=== PATIENT | male | born 1975 | race Caucasian/White ===

== ENCOUNTER 2017-06-15 13:56 | Inpatient (IN) ==
[2017-06-15] MEDS: M.V.I.-12 10 ML, FOLIC ACID 1 MG, MAGNESIUM SULFATE 1 GM, THIAMINE 100 MG in NS 1,000 ML IV ONE ×2 (14:23→16:00)
[2017-06-15 15:14] LABS: BASO% 0.8 % (0.0-0.8); EOS# 0.15 X1000 (0.0-0.7); EOS% 3.9 % (0.0-10.0); HEMATOCRIT 39.8 % (42.0-52.0); HEMOGLOBIN 14.7 g/dL (14.0-18.0); LYMPH# 0.71 X1000 (1.2-3.4); LYMPH% 18.6 % (20.5-51.1); MANUAL DIFF NEEDED? YES; MCH 40.2 PG (27-31); MCHC 36.9 g/dL (33-37); MCV 108.7 FL (81-99); MONO# 0.83 X1000 (0.11-0.59); MONO% 21.8 % (1.7-9.3); NEUT% 54.9 % (42.2-75.2); PLT 64 X1000 (130-400); RBC 3.66 XMIL (4.7-6.1)
[2017-06-15 15:29] LABS: AGAP 13; ALBUMIN 3.7 g/dL (3.5-5.0); ALKALINE PHOSPHATASE 105 U/L (32-122); BUN 12 mg/dL (8-22); CALCIUM 9.1 mg/dL (8.8-10.2); CHLORIDE 96 mmol/L (98-107); COSMO 266; GOT 133 U/L (10-34); GPT 59 U/L (10-44); LIPASE 61 U/L (13-60); POTASSIUM 5.8 mmol/L (3.5-5.1); SODIUM 133 mmol/L (136-145); TCO2 24 mmol/L (25-35); TOTAL BILIRUBIN 1.64 mg/dL (0.20-1.00); TOTAL PROTEIN 7.2 g/dL (6.3-8.3)
[2017-06-15 15:32] LABS: BASO 1 % (0-1); EOS 6 % (1-10); LYMPHS 19 % (21-51); MONO 19 % (1-9)
[2017-06-15 15:40] LABS: URINE CULTURE NEEDED? NO; URINE MICRO REVIEW NEEDED? NO; URINE SOURCE CLEAN CATCH
[2017-06-15 15:52] LABS: BILIRUBIN URINE NEGATIVE (NEGATIVE); BLOOD URINE NEGATIVE (NEGATIVE); COLOR YELLOW; GLUCOSE URINE NEGATIVE (NEGATIVE); LEUKOCYTES URINE NEGATIVE (NEGATIVE); NITRITE URINE NEGATIVE (NEGATIVE); PROTEIN URINE NEGATIVE (NEGATIVE); SP GRAVITY URINE 1.007; TURBIDITY URINE CLEAR (CLEAR); UROBILINOGEN URINE NORMAL (NORMAL)
[2017-06-15 15:53] LABS: UR EPITHELIAL CELLS <10 /HPF (<10); URINE BACTERIA NEGATIVE /HPF; URINE RBC <10 /HPF (<10); URINE WBC <10 /HPF (<10)
[2017-06-15] MEDS ORDERED: VELTASSA PO ONE (16:14)
[2017-06-15 16:21] LABS: UR AMPHETAMINES QUAL NONE DETECTED (NONE DETECT); UR BARBITUATES QUAL NONE DETECTED (NONE DETECT); UR BENZODIAZEPIN QUAL PRESUMPTIVE POSITIVE (NONE DETECT); UR CANNABINOIDS QUAL NONE DETECTED (NONE DETECT); UR COCAINE QUAL NONE DETECTED (NONE DETECT); UR METHADONE QUAL NONE DETECTED (NONE DETECT); UR OPIATES QUAL NONE DETECTED (NONE DETECT); UR OXYCODONE QUAL NONE DETECTED (NONE DETECT); UR PCP QUAL NONE DETECTED (NONE DETECT)
[2017-06-15] MEDS ORDERED: ALBUTEROL 0.5% INH CONC FOR HYPERKALEMIA INH ONE (17:44)
[2017-06-15] MEDS ORDERED: ZOFRAN IV PRN (18:28)
[2017-06-15] MEDS: NS 1,000 ML IV SCH (21:00)
[2017-06-15] MEDS: ULTRAM PO PRN (21:03)
[2017-06-16] MEDS: ULTRAM PO PRN ×3 (06:06→18:48)
[2017-06-16] MEDS: PROTONIX IV SCH (06:06)
[2017-06-16 06:40] LABS: EOS# 0.21 X1000 (0.0-0.7); EOS% 7.2 % (0.0-10.0); HEMATOCRIT 40.1 % (42.0-52.0); LYMPH# 0.99 X1000 (1.2-3.4); LYMPH% 33.8 % (20.5-51.1); MANUAL DIFF NEEDED? YES; MCH 38.7 PG (27-31); MCHC 34.9 g/dL (33-37); MCV 110.8 FL (81-99); MONO% 20.5 % (1.7-9.3); MPV 11.7 FL (7.4-10.4); NEUT% 37.5 % (42.2-75.2); PLT 46 X1000 (130-400); RBC 3.62 XMIL (4.7-6.1)
[2017-06-16 06:47] LABS: AMYLASE 44 U/L (20-200); LIPASE 64 U/L (13-60)
[2017-06-16 07:02] LABS: AGAP 13; ALBUMIN 3.3 g/dL (3.5-5.0); ALKALINE PHOSPHATASE 101 U/L (32-122); BUN 12 mg/dL (8-22); CALCIUM 8.4 mg/dL (8.8-10.2); CHLORIDE 102 mmol/L (98-107); COSMO 271; GOT 93 U/L (10-34); GPT 48 U/L (10-44); SODIUM 136 mmol/L (136-145); TCO2 21 mmol/L (25-35); TOTAL BILIRUBIN 1.59 mg/dL (0.20-1.00); TOTAL PROTEIN 6.2 g/dL (6.3-8.3)
--- NOTE | 2017-06-16 07:13 | Diag Imaging Result Doc PS360 ---
EXAM: CHEST-PORTABLE HISTORY: dyspnea TECHNIQUE: Portable chest COMPARISON: None. FINDINGS: The lungs are well expanded. The heart is not enlarged. The vessels are not distended. No pneumonia. No pleural effusions identified. IMPRESSION: Negative chest. Electronically signed by Victoriano Flores 06/16/2017 7:10 AM
[2017-06-16 07:36] LABS: LYMPHS 32 % (21-51); MONO 8 % (1-9)
--- NOTE | 2017-06-16 08:19 | Diag Imaging Result Doc PS360 ---
EXAM: US ABDOMEN-COMPLETE INDICATION: Elevated liver function COMPARISON: None. FINDINGS: The gallbladder appears normal with no stones, wall thickening, or pericholecystic fluid. The common bile duct is normal in diameter. Sonographic Villa's sign was reported to be negative. The liver is diffusely echogenic indicating hepatic steatosis. No discrete hepatic mass is identified. Portal venous flow is hepatopedal. The visualized pancreas is unremarkable. The mid and distal aorta are obscured by gas. The remainder of the aorta and IVC are grossly unremarkable. The spleen is enlarged measuring up to 15.4 cm in the greatest dimension. The lower pole of the left kidney is obscured by gas. The kidneys are grossly unremarkable, otherwise. IMPRESSION: 1.Hepatic steatosis. 2.Splenomegaly. Electronically signed by Ford Erickson 06/16/2017 8:17 AM
[2017-06-16] MEDS ORDERED: SUBOXONE 8 MG/2 MG SL SCH (09:00)
[2017-06-16] MEDS: VITAMIN B-1 PO SCH (09:32)
[2017-06-16] MEDS: NS 1,000 ML IV SCH ×3 (11:17→22:30)
[2017-06-16 11:57] LABS: HEPATITIS PROFILE ACUTE SEE COMMENTS
[2017-06-17] MEDS: NS 1,000 ML IV SCH ×3 (01:57→13:36)
[2017-06-17] MEDS: SODIUM CHLORIDE 0.9% INJ SCH (05:57)
[2017-06-17 05:59] LABS: EOS# 0.21 X1000 (0.0-0.7); EOS% 7.2 % (0.0-10.0); HEMATOCRIT 38.4 % (42.0-52.0); HEMOGLOBIN 13.4 g/dL (14.0-18.0); LYMPH# 1.19 X1000 (1.2-3.4); LYMPH% 40.8 % (20.5-51.1); MANUAL DIFF NEEDED? YES; MCH 38.6 PG (27-31); MCHC 34.9 g/dL (33-37); MCV 110.7 FL (81-99); MONO# 0.54 X1000 (0.11-0.59); MONO% 18.5 % (1.7-9.3); MPV 11.3 FL (7.4-10.4); NEUT% 32.5 % (42.2-75.2); PLT 79 X1000 (130-400); RBC 3.47 XMIL (4.7-6.1)
[2017-06-17] MEDS: PROTONIX IV SCH (05:59)
[2017-06-17] MEDS: ULTRAM PO PRN ×2 (06:02→14:40)
[2017-06-17 06:12] LABS: AGAP 10; ALBUMIN 3.2 g/dL (3.5-5.0); ALKALINE PHOSPHATASE 89 U/L (32-122); BUN 11 mg/dL (8-22); CALCIUM 8.9 mg/dL (8.8-10.2); CHLORIDE 103 mmol/L (98-107); COSMO 275; GOT 73 U/L (10-34); GPT 42 U/L (10-44); LIPASE 71 U/L (13-60); POTASSIUM 3.8 mmol/L (3.5-5.1); SODIUM 138 mmol/L (136-145); TCO2 25 mmol/L (25-35); TOTAL BILIRUBIN 1.08 mg/dL (0.20-1.00); TOTAL PROTEIN 6.5 g/dL (6.3-8.3)
[2017-06-17 06:17] LABS: EOS 10 % (1-10); LYMPHS 44 % (21-51); MONO 6 % (1-9)
[2017-06-17] MEDS: VITAMIN B-1 PO SCH (08:41)
[2017-06-17] MEDS: SUBOXONE 8 MG/2 MG SL SCH ×3 (08:41→17:57)
[2017-06-17 13:18] LABS: HCV BY PCR SEE COMMENTS; HCV CHARGE YES
[2017-06-17] MEDS: MIRALAX PO SCH ×2 (13:31→21:14)
[2017-06-18] MEDS: NS 1,000 ML IV SCH ×5 (01:32→23:42)
[2017-06-18 05:46] LABS: HEMATOCRIT 39.1 % (42.0-52.0); HEMOGLOBIN 13.5 g/dL (14.0-18.0); MCH 39.2 PG (27-31); MCHC 34.5 g/dL (33-37); MCV 113.7 FL (81-99); MPV 11.4 FL (7.4-10.4); RBC 3.44 XMIL (4.7-6.1)
[2017-06-18 05:49] LABS: AGAP 8; ALBUMIN 3.1 g/dL (3.5-5.0); ALKALINE PHOSPHATASE 86 U/L (32-122); AMYLASE 42 U/L (20-200); BUN 7 mg/dL (8-22); CALCIUM 8.4 mg/dL (8.8-10.2); CHLORIDE 104 mmol/L (98-107); COSMO 271; GOT 60 U/L (10-34); GPT 39 U/L (10-44); LIPASE 55 U/L (13-60); POTASSIUM 3.9 mmol/L (3.5-5.1); SODIUM 137 mmol/L (136-145); TCO2 25 mmol/L (25-35); TOTAL BILIRUBIN 0.78 mg/dL (0.20-1.00); TOTAL PROTEIN 6.1 g/dL (6.3-8.3)
[2017-06-18] MEDS: SUBOXONE 8 MG/2 MG SL SCH ×3 (08:12→21:22)
[2017-06-18] MEDS: MIRALAX PO SCH ×2 (08:12→21:22)
[2017-06-18] MEDS: SODIUM CHLORIDE 0.9% INJ SCH (08:12)
[2017-06-18] MEDS: PROTONIX IV SCH (08:12)
[2017-06-18] MEDS: VITAMIN B-1 PO SCH (08:12)
[2017-06-18] MEDS: ULTRAM PO PRN ×2 (11:56→18:22)
[2017-06-19] MEDS: SODIUM CHLORIDE 0.9% INJ SCH (06:05)
[2017-06-19] MEDS: PROTONIX IV SCH (06:05)
[2017-06-19] MEDS: VITAMIN B-1 PO SCH (09:30)
[2017-06-19] MEDS: SUBOXONE 8 MG/2 MG SL SCH ×3 (09:30→16:30)
[2017-06-19] MEDS: MIRALAX PO SCH ×2 (09:30→20:05)
[2017-06-19] MEDS: ULTRAM PO PRN ×3 (09:36→21:33)
[2017-06-20] MEDS: PROTONIX IV SCH (06:08)
[2017-06-20] MEDS: SODIUM CHLORIDE 0.9% INJ SCH (06:08)
[2017-06-20 07:31] LABS: AGAP 14; BUN 9 mg/dL (8-22); CALCIUM 9.1 mg/dL (8.8-10.2); CHLORIDE 99 mmol/L (98-107); COSMO 271; POTASSIUM 4.3 mmol/L (3.5-5.1); SODIUM 135 mmol/L (136-145); TCO2 22 mmol/L (25-35)
[2017-06-20 07:32] VITALS: BP 129/77
[2017-06-20] MEDS: SUBOXONE 8 MG/2 MG SL SCH ×3 (07:44→12:00)
[2017-06-20] MEDS: MIRALAX PO SCH (10:08)
[2017-06-20] MEDS: ULTRAM PO PRN (10:09)
[2017-06-20] MEDS: VITAMIN B-1 PO SCH (10:09)
[2017-06-20] MEDS ORDERED: FLUZONE QUAD 2017-2018 SYRINGE IM ONE (10:59)
[2017-06-21] MEDS ORDERED: PROTONIX PO SCH (07:00)
== END 2017-06-20 12:31 ==
LOC: ED 13:56 → 4N 18:58 → SUATTDRO 18:58 → 3N 06-18 14:28
PROVIDERS: ATTEND Internal Medicine